=== PATIENT | male | born 1945 | race African-American/Black ===

== ENCOUNTER 2018-11-15 00:54 | Inpatient (IN) | payer OTHER ==
[~2018-11-15] VITALS: Ht 167.6 cm; Wt 80.2 kg
--- NOTE | 2018-11-15 02:30 | NUR ---
tele direct admit pt is 73 yo male who came from [facility] with complaints of chest pain non radiating intermittent x2 days. pt reports chest pain 9/0-10 scale 11/14/18 while walking around his neighborhood and calling EMS. pt arrived via gurney, awake, alert and oriented x4. pt on 3L NC with no distress noted or expressed. pt denies any pain at this time. pt denies ever having had this type of pain occur before. pt oriented to this nurse, Ap, to room, use of call light and bed controls. pt has no questions at this time. pt encouraged to call nurse as needed. this nurse attempted to call Dr Vasquez, accepting physician, no answer, message left, will attempt again at later time. bed locked, low and 2x rails up. call light in reach, will round on pt q1hr and prn.
[2018-11-15] MEDS ORDERED: METF-371 (03:48)
[2018-11-15] MEDS ORDERED: SITA100T7 (03:48)
[2018-11-15] MEDS ORDERED: GLIM4TAB42 (03:48)
[2018-11-15] MEDS ORDERED: SIMV-13 (03:48)
[2018-11-15] MEDS ORDERED: NITROGLYCERIN 0.4 MG SL TAB SL PRN ×2 (04:00→07:45)
[2018-11-15] MEDS ORDERED: DEXTROSE (50%) 50ML SYRG IV PRN (04:00)
[2018-11-15] MEDS ORDERED: MORPHINE SULFATE 4 MG/ML SYR/VIAL IV PRN ×2 (04:00→07:15)
[2018-11-15 05:07] VITALS: BP 102/65
[2018-11-15 05:50] LABS: Basophils # (auto) 0 uL; Basophils % (auto) 0.5 % (0.0-2.0); Eosinophils # (auto) 0.1 uL; Eosinophils % (auto) 1.3 % (0.0-7.0); Hematocrit 38.5 % (41.0-53.0); Hemoglobin 13.3 g/dL (13.5-17.5); Lymphocytes % (auto) 19.3 % (10.0-50.0); Mean Corpuscular Hemoglobin 31.3 pg (28.0-32.0); Mean Corpuscular Hgb Conc. 34.5 g/dL (32.0-36.0); Mean Corpuscular Volume 90.7 fL (80.0-100.0); Monocytes # (auto) 0.5 uL; Monocytes % (auto) 10.3 % (0.0-12.0); Neutrophils # (auto) 3.5 uL; Neutrophils % (auto) 68.6 % (37.0-80.0); Platelet Count (auto) 172 10^3/uL (140-450); Red Blood Cells 4.25 10^6/uL (4.5-5.90); Red Cell Distribution Width 13.2 % (11.8-14.3)
[2018-11-15 06:06] LABS: INR 1.04 (0.9-1.15)
[2018-11-15 06:13] LABS: Calcium 8.5 mg/dL (8.5-10.1); Potassium 3.8 mmol/L (3.5-5.1)
[2018-11-15 06:16] LABS: BUN/Creatinine Ratio 21.3
[2018-11-15] MEDS: InsuLIN REG 1unit/0.01ml Soln (100units/ml) SC SCH ×4 (06:27→21:31)
[2018-11-15] MEDS: SODIUM CHLORIDE 0.9% 1,000 ML IV SCH (06:27)
[2018-11-15] MEDS: ACCU-CHEK COMFORT CURVE STRIP VI SCH ×4 (06:27→22:00)
[2018-11-15] MEDS ORDERED: MORPHINE SULF INJ 2 MG/ML SYRINGE 1ML IV PRN ×2 (07:00→07:45)
--- NOTE | 2018-11-15 08:00 | NUR ---
Opening Shift Note Assumed care of patient, awake, alert and oriented X4. No S/S of distress/SOB or pain. Tele# 74, sinus rhythm @ 64 bpm. IV to right forearm, 20 gauge, patent and infusing 0.9% NS @ 50 ml/hr. Instructed on POC and to call for assist PRN, verbalized understanding. Bed locked, in lowest position, call light within reach, will continue to monitor for changes Q1hr and PRN.
[2018-11-15 08:55] VITALS: BP 102/68
--- NOTE | 2018-11-15 08:55 | NUR ---
IMPREGNATING HELPER Patient taken to [facility] via bed, no distress noted upon departure.
[2018-11-15] MEDS: ENOXAPARIN SOD 60 MG/0.6 ML SYRINGE SC SCH ×2 (09:22→22:45)
[2018-11-15] MEDS: ASPirin 81 mg TAB PO SCH (09:22)
[2018-11-15] MEDS ORDERED: IOHEXOL 350 MG/ML 100ML IJ ONE ×3 (11:09→11:58)
[2018-11-15] MEDS ORDERED: ANGIOMAX 250 MG VIAL IV ONE (11:11)
[2018-11-15] MEDS ORDERED: MIDAZOLAM HCL 1MG/1ML-2 ML VIAL ONE (11:11)
[2018-11-15] MEDS ORDERED: fentaNYL CITRATE 100 MCG/2 ML VL ONE (11:11)
[2018-11-15] MEDS ORDERED: SODIUM CHL 0.9% 50 ML ONE (11:11)
[2018-11-15] MEDS ORDERED: EPTIFIBATIDE INJ (2MG/ML) 10ML VIAL IV ONE (11:49)
[2018-11-15] MEDS ORDERED: ATROPINE SULFATE 1 MG/1 ML VIAL ONE (12:00)
[2018-11-15] MEDS ORDERED: ASPirin 81 mg TAB ONE (12:11)
[2018-11-15] MEDS ORDERED: TICAGRELOR 90 MG TAB ONE (12:11)
--- NOTE | 2018-11-15 13:14 | NUR ---
PT OUT OF ROOM FOR 1300 VITALS
--- NOTE | 2018-11-15 13:30 | NUR ---
[employer] Patient returned from [facility] via bed. Right groin access site soft to palpitation with dressing clean, dry and intact. Distal pulses strong and regular. IV to right forearm, 20 gauge, patent and saline locked. Patient reminded he needs to lay flat until 1430 and this nurse checks is right groin access site, verbalized understanding.
[2018-11-15 16:28] VITALS: BP 116/67
--- NOTE | 2018-11-15 19:12 | NUR ---
Care endorsed to BARBRA Coleman, night nurse.
--- NOTE | 2018-11-15 19:15 | NUR ---
RECEIVED PATIENT, AWAKE, ALERT, ORIENTED X4. NO S/S OF RESPIRATORY DISTRESS, DENIES CHEST PAIN. S/P LHC TODAY, WITH DRESSING ON THE RIGHT GROIN DRY AND CLEAN, SURROUNDING AREA IS SOFT, NO BLEEDING, NO SWELLING OR HEMATOMA NOTED, POSITIVE FOR DISTAL PULSES. ORIENTED ON PLAN OF CARE. BED IS LOCKED AND IN LOWEST POSITION, SIDE RAILS UP X2, CALL LIGHT WITHIN REACH. WILL CONTINUE TO MONITOR.
--- NOTE | 2018-11-15 21:29 | NUR ---
REASSESSMENT RIGHT GROIN DRESSING DRY AND CLEAN, SURROUNDING AREA IS SOFT, NO BLEEDING, NO SWELLING OR HEMATOMA NOTED, POSITIVE FOR DISTAL PULSES. WILL CONTINUE TO MONITOR
[2018-11-15] MEDS: TICAGRELOR 90 MG TAB PO SCH (21:31)
[2018-11-15 21:59] VITALS: BP 107/67
--- NOTE | 2018-11-15 22:44 | NUR ---
REASSESSMENT RIGHT GROIN DRESSING DRY AND CLEAN, SURROUNDING AREA IS SOFT, NO BLEEDING, NO SWELLING OR HEMATOMA NOTED, POSITIVE FOR DISTAL PULSES. WILL CONTINUE TO MONITOR
[2018-11-16] MEDS: SODIUM CHLORIDE 0.9% 1,000 ML IV SCH ×2 (01:00→21:00)
--- NOTE | 2018-11-16 01:02 | NUR ---
PATIENT IS ASLEEP, NO S/S OF DISTRESS. WILL CONTINUE TO MONITOR
--- NOTE | 2018-11-16 02:00 | NUR ---
REASSESSMENT RIGHT GROIN DRESSING DRY AND CLEAN, SURROUNDING AREA IS SOFT, NO BLEEDING, NO SWELLING OR HEMATOMA NOTED, POSITIVE FOR DISTAL PULSES. WILL CONTINUE TO MONITOR
--- NOTE | 2018-11-16 04:13 | NUR ---
PAGEDex BELL REGARDING ORDER IN ED TO START ZOSYN 4.5 GM IV Q8H. UNABLE TO ENTER THE ORDER, PATIENT IS ALLERGIC TO [place]. WAITING FOR CALL BACK Addendum: 11/16/18 at 0717 by ZARINA SHAIKH RN DISREGARD. WRONG PATIENT
[2018-11-16 05:00] VITALS: BP 113/72
--- NOTE | 2018-11-16 05:58 | NUR ---
CONTACTED DR. BELL, PATIENT'S BLOOD PRESSURE IS AT 160'S SYSTOLIC, NO PRN ANTIHYPERTENSIVE MEDICATION ORDERED. WAITING FOR CALL BACK Addendum: 11/16/18 at 0718 by ZARINA SHAIKH RN DISREGARD. DOCUMENTED ON WRONG PATIENT
[2018-11-16] MEDS: ACCU-CHEK COMFORT CURVE STRIP VI SCH ×4 (06:30→22:02)
[2018-11-16] MEDS: InsuLIN REG 1unit/0.01ml Soln (100units/ml) SC SCH ×4 (06:30→22:00)
--- NOTE | 2018-11-16 06:44 | NUR ---
LATEST BLOOD PRESSURE 148/76. WILL CONTINUE TO MONITOR Addendum: 11/16/18 at 0719 by ZARINA SHAIKH RN DISREGARD. DOCUMENTED ON WRONG PATIENT
--- NOTE | 2018-11-16 07:39 | NUR ---
CARE ENDORSED TO AM SHIFT RN
--- NOTE | 2018-11-16 08:00 | NUR ---
Opening Shift Note Assumed care of patient, awake, alert and oriented X4. No S/S of distress/SOB or pain. Tele# 74, sinus rhythm @ 77 bpm. IV to right forearm, 20 gauge, patent and infusing 0.9% NS @ 50 ml/hr. Right groin dressing clean, dry and intact. Instructed on POC and to call for assist PRN, verbalized understanding. Bed locked, in lowest position, call light within reach, will continue to monitor for changes Q1hr and PRN.
[2018-11-16 09:22] VITALS: BP 124/74
[2018-11-16] MEDS: ASPirin 81 mg TAB PO SCH (10:00)
[2018-11-16] MEDS: ENOXAPARIN SOD 60 MG/0.6 ML SYRINGE SC SCH ×2 (10:00→22:02)
[2018-11-16] MEDS: TICAGRELOR 90 MG TAB PO SCH ×2 (10:00→22:02)
[2018-11-16 12:49] VITALS: BP 105/52
[2018-11-16 16:56] VITALS: BP 106/48
--- NOTE | 2018-11-16 19:20 | NUR ---
Opening Shift Note Assumed care of patient, awake and alert. No S/S of distress/SOB or pain. Instructed on POC and to call for assist PRN. Bed in lowest locked position, call light within reach, side rails up x2. Will continue to monitor for changes Q1hr and PRN.
--- NOTE | 2018-11-16 19:21 | NUR ---
Care endorsed to BARBRA Murdock, night nurse.
[2018-11-16 21:40] VITALS: BP 118/67
[2018-11-17 05:26] VITALS: BP 127/73
[2018-11-17] MEDS: ACCU-CHEK COMFORT CURVE STRIP VI SCH ×2 (06:43→11:30)
[2018-11-17] MEDS: InsuLIN REG 1unit/0.01ml Soln (100units/ml) SC SCH (06:43)
--- NOTE | 2018-11-17 08:00 | NUR ---
Opening Shift Note Assumed care of patient, awake, alert and oriented X4. No S/S of distress/SOB or pain. Tele# 74, sinus rhythm @ 65 bpm. IV to right forearm, 20 gauge, patent and infusing 0.9% NS @ 50 ml/hr. Right groin dressing clean, dry and intact. Instructed on POC and to call for assist PRN, verbalized understanding. Bed locked, in lowest position, call light within reach, will continue to monitor for changes Q1hr and PRN
[2018-11-17 09:17] VITALS: BP 105/60
[2018-11-17] MEDS: ASPirin 81 mg TAB PO SCH (09:55)
[2018-11-17] MEDS: TICAGRELOR 90 MG TAB PO SCH (09:55)
[2018-11-17] MEDS: ENOXAPARIN SOD 60 MG/0.6 ML SYRINGE SC SCH (09:55)
[2018-11-17 11:34] VITALS: BP 105/60
--- NOTE | 2018-11-17 12:30 | NUR ---
Discharge instructions given as ordered. Encourage to follow up with PMD as instructed. All questions and concerns addressed. Patient verbalized understanding. Medication reconciliation form completed and copy given to patient. IV removed with catheter intact, pressure dressing applied. New prescriptions called into [facility] on [address] in [place], [place]. Telemetry unit returned to ICU. Patient taken to vehicle via wheelchair with all personal belongings, accompanied by staff and family member. No distress noted at time of departure.
== END 2018-11-17 12:20 | disposition home or self-care (01) | DRG 247 ==
LOC: TELE-WESTW 01:49
PROVIDERS: ADMIT Internal Medicine Cardiovascular Disease; ATTEND Internal Medicine Cardiovascular Disease
PROC: 027135Z Dilation of Coronary Artery, Two Arteries with Two Drug-eluting Intraluminal Devices, Percutaneous Approach (ICD-10-PCS; principal; 2018-11-15)
PROC: 02713ZZ Dilation of Coronary Artery, Two Arteries, Percutaneous Approach (ICD-10-PCS; 2018-11-15)
PROC: B2111ZZ Fluoroscopy of Multiple Coronary Arteries using Low Osmolar Contrast (ICD-10-PCS; 2018-11-15)
DX: I21.09 ST elevation (STEMI) myocardial infarction involving other coronary artery of anterior wall (principal); E78.5 Hyperlipidemia, unspecified; I10 Essential (primary) hypertension; Z79.899 Other long term (current) drug therapy
CPT/HCPCS: 36415; 71045; 80048; 82962; 85025; 85610; 85730; 92920; 92928; 92929; 93454; 99152; 99153; C1751; C1887; G0378; J0461; J1815; J2250

== ENCOUNTER → 2018-12-19 | Outpatient (CLI) | payer OTHER ==
[~2018-12-19] VITALS: Ht 170.2 cm; Wt 74.8 kg
[~2018-12-19] MED LIST: ADENOSINE 63 MG in GIVE UN-DILUTED 0 ML IV ONE; ADENOSINE 90 MG/30 ML INJ IV ONE; GLIM4TAB42; METF-371; SIMV-13; SITA100T7
== END | disposition home or self-care (01) ==
LOC: Rad HDHVI 07:58
PROVIDERS: ATTEND Internal Medicine Cardiovascular Disease
DX: I08.3 Combined rheumatic disorders of mitral, aortic and tricuspid valves (principal); I11.0 Hypertensive heart disease with heart failure; I50.23 Acute on chronic systolic (congestive) heart failure; I25.2 Old myocardial infarction; I20.0 Unstable angina; R06.02 Shortness of breath; R94.31 Abnormal electrocardiogram [ECG] [EKG]; Z95.820 Peripheral vascular angioplasty status with implants and grafts
CPT/HCPCS: 78452; 93005; 93306; 96374; 96375; A9500; J0153

== ENCOUNTER → 2019-09-04 | Outpatient (CLI) | payer OTHER ==
[~2019-09-04] MED LIST changes: -ADENOSINE 63 MG in GIVE UN-DILUTED 0 ML IV ONE; -ADENOSINE 90 MG/30 ML INJ IV ONE
== END | disposition home or self-care (01) ==
LOC: Rad HDHVI 07:58
PROVIDERS: ATTEND Internal Medicine Cardiovascular Disease
DX: I25.10 Atherosclerotic heart disease of native coronary artery without angina pectoris (principal); I11.0 Hypertensive heart disease with heart failure; I50.23 Acute on chronic systolic (congestive) heart failure
CPT/HCPCS: 93306

== ENCOUNTER → 2019-11-15 | Outpatient (CLI) | payer OTHER ==
[~2019-11-15] MED LIST changes: +GLIM4TAB42 PO; +LATA0.0020 EACHEYE; +METF-371 PO; +RAMI2.5C33 PO; +SIMV-13 PO; +SITA100T7 PO; +TICA90TA PO
[2019-11-15 09:10] VITALS: BP 154/73
--- NOTE | 2019-11-15 09:10 | NUR ---
Patient into clinic for scheduled preop appointment, [id number].
--- NOTE | 2019-11-15 09:19 | NUR ---
EKG SR 68 prolonged pr interval
[2019-11-15 09:35] VITALS: BP 137/74
--- NOTE | 2019-11-15 09:35 | NUR ---
Pre-Op Discharge Summary: See e-MAR for any medications given for this visit. Pre-op orders received and carried out per MD of EKG, LABS and chest xrays. Patient given a copy of EKG with instructions to go to [facility] out patient for further follow up care.
[2019-11-15 12:04] LABS: Basophils # (auto) 0 10 ^3/uL (0-0.2); Basophils % (auto) 0.8 % (0.0-2.0); Eosinophils # (auto) 0.1 10 ^3/uL (0-0.8); Eosinophils % (auto) 1.2 % (0.0-7.0); Hematocrit 40.3 % (41.0-53.0); Hemoglobin 14.1 g/dL (13.5-17.5); Lymphocytes # (auto) 1.1 10 ^3/uL (0.4-5.4); Lymphocytes % (auto) 23.7 % (10.0-50.0); Mean Corpuscular Hemoglobin 32.5 pg (28.0-32.0); Mean Corpuscular Volume 93.1 fL (80.0-100.0); Monocytes # (auto) 0.5 10 ^3/uL (0-1.3); Neutrophils # (auto) 2.8 10 ^3/uL (1.6-8.6); Neutrophils % (auto) 63.3 % (37.0-80.0); Platelet Count (auto) 136 10^3/uL (140-450); Red Blood Cells 4.33 10^6/uL (4.5-5.90); Red Cell Distribution Width 13.2 % (11.8-14.3); White Blood Cell 4.5 10^3/uL (4.4-10.8)
[2019-11-15 12:16] LABS: Calcium 8.6 mg/dL (8.5-10.1); Potassium 4.5 mmol/L (3.5-5.1)
[2019-11-15 12:18] LABS: BUN/Creatinine Ratio 23.9
[2019-11-15 12:21] LABS: INR 0.96 (0.9-1.15); Partial Thromboplastin Time 26.7 sec (23.0-31.2)
== END | disposition home or self-care (01) ==
LOC: Rad HDHVI 08:45
PROVIDERS: ATTEND Internal Medicine Cardiovascular Disease
DX: Z01.812 Encounter for preprocedural laboratory examination (principal); M47.814 Spondylosis without myelopathy or radiculopathy, thoracic region; I70.0 Atherosclerosis of aorta
CPT/HCPCS: 36415; 71046; 80048; 85025; 85610; 85730; 93005; G0463

== ENCOUNTER 2019-11-21 07:32 | Inpatient (IN) | payer OTHER ==
[~2019-11-21] VITALS: Ht 170.2 cm; Wt 71.0 kg
[~2019-11-21 07:32] MED LIST changes: -GLIM4TAB42 PO; -LATA0.0020 EACHEYE; -METF-371 PO; -RAMI2.5C33 PO; -SIMV-13 PO; -SITA100T7 PO; -TICA90TA PO
[2019-11-21] MEDS ORDERED: VANCOMYCIN 1GM/250ML 250 ML IV ONE ×2 (09:30→11:48)
[2019-11-21] MEDS ORDERED: VANCOMYCIN 1GM/250ML 0 ML IV ONE (10:19)
[2019-11-21] MEDS ORDERED: fentaNYL CITRATE 100 MCG/2 ML VL ONE (11:48)
[2019-11-21] MEDS ORDERED: LIDOCAINE 2%HCL (LOCAL ANESTH.) INJ 20ML MDV ONE ×2 (11:48)
[2019-11-21] MEDS ORDERED: VANCOMYCIN HCL 1000 MG VL ONE (11:48)
[2019-11-21] MEDS ORDERED: MIDAZOLAM HCL 1MG/1ML-2 ML VIAL ONE (11:48)
[2019-11-21] MEDS ORDERED: RAMI2.5C33 PO (14:39)
[2019-11-21] MEDS ORDERED: TICA90TA PO (14:39)
[2019-11-21] MEDS ORDERED: NITROGLYCERIN 0.4 MG SL TAB SL PRN (14:45)
[2019-11-21] MEDS ORDERED: MORPHINE SULF INJ 2 MG/ML SYRINGE 1ML IV PRN (14:45)
[2019-11-21] MEDS ORDERED: DEXTROSE (50%) 50ML SYRG IV PRN (14:45)
[2019-11-21] MEDS ORDERED: ACETAMINOPHEN 325 MG TAB PO PRN (14:45)
[2019-11-21] MEDS ORDERED: HYDROcodone-ACET 5/325MG TAB PO PRN (14:45)
[2019-11-21] MEDS ORDERED: SIMV-13 PO ×2 (14:52→18:16)
[2019-11-21] MEDS: ceFAZolin 1GM/50ML 50 ML IV SCH ×2 (16:40→22:49)
[2019-11-21] MEDS: ACCU-CHEK COMFORT CURVE STRIP VI SCH ×2 (16:49→21:48)
[2019-11-21] MEDS: InsuLIN REG 1unit/0.01ml Soln (100units/ml) SC SCH (16:50)
[2019-11-21] MEDS ORDERED: SITA100T7 PO (18:16)
[2019-11-21] MEDS ORDERED: GLIM4TAB42 PO (18:16)
[2019-11-21] MEDS ORDERED: METF-371 PO (18:16)
[2019-11-21] MEDS ORDERED: LATA0.0020 EACHEYE (18:16)
[2019-11-21 22:00] VITALS: BP 125/64
[2019-11-21] MEDS ORDERED: InsuLIN REG 1unit/0.01ml Soln (100units/ml) SC SCH (22:00)
[2019-11-21] MEDS ORDERED: ATORVASTATIN 20 MG TAB PO SCH (22:00)
[2019-11-22 05:00] VITALS: BP 140/72
[2019-11-22] MEDS: ACCU-CHEK COMFORT CURVE STRIP VI SCH ×2 (06:44→11:18)
[2019-11-22] MEDS: InsuLIN REG 1unit/0.01ml Soln (100units/ml) SC SCH ×2 (06:45→11:19)
[2019-11-22 09:00] VITALS: BP 119/68
[2019-11-22] MEDS ORDERED: RAMIPRIL 2.5 MG CAP PO SCH (10:00)
[2019-11-22 13:00] VITALS: BP 108/60
[2019-11-22 15:01] VITALS: BP 108/60
== END 2019-11-22 15:45 | disposition home or self-care (01) | DRG 227 ==
LOC: CATH 07:32 → TELE-WESTW 16:32
PROVIDERS: ADMIT Internal Medicine Cardiovascular Disease; ATTEND Internal Medicine Cardiovascular Disease
PROC: 0JH609Z Insertion of Cardiac Resynchronization Defibrillator Pulse Generator into Chest Subcutaneous Tissue and Fascia, Open Approach (ICD-10-PCS; principal; 2019-11-21)
PROC: 02HL3KZ Insertion of Defibrillator Lead into Left Ventricle, Percutaneous Approach (ICD-10-PCS; 2019-11-21)
PROC: 02HK3KZ Insertion of Defibrillator Lead into Right Ventricle, Percutaneous Approach (ICD-10-PCS; 2019-11-21)
PROC: 02H63KZ Insertion of Defibrillator Lead into Right Atrium, Percutaneous Approach (ICD-10-PCS; 2019-11-21)
PROC: 4B02XTZ Measurement of Cardiac Defibrillator, External Approach (ICD-10-PCS; 2019-11-22)
DX: I49.5 Sick sinus syndrome (principal); I50.22 Chronic systolic (congestive) heart failure; I42.0 Dilated cardiomyopathy; Z20.828 Contact with and (suspected) exposure to other viral communicable diseases
CPT/HCPCS: 33249; 71045; 82962; 93005; 99152; 99153; A4565; G0378; J0690; J1815; J2250